=== PATIENT | female | born 1995 | race American Indian/Alaskan Native ===

== ENCOUNTER 2021-03-28 12:24 | Emergency (ER) | payer MEDICAID ==
[2021-03-28] MEDS ORDERED: BUTALB/ACETAMINOPHEN/CAFFEINE TAB PO ONE (13:31)
[2021-03-28] MEDS ORDERED: DEXAMETHASONE 4 MG TAB PO ONE (13:31)
[2021-03-28 13:32] VITALS: BP 117/82
--- NOTE | 2021-03-28 13:36 | Emergency Department Report ---
ED Head Trauma HPI - General Chief complaint: Head Injury Stated complaint: HEAD INJURY Time Seen by Provider: 03/28/21 13:15 Source: patient Mode of arrival: Ambulatory Limitations: No Limitations - History of Present Illness Initial comments: 25-year-old female with past medical history of asthma presents to the ER today complaining of head injury. Patient states that she excellently ran into a glass door playing with her dog 4 days ago. She denies any LOC. She states that she struck the left frontal aspect of her head and she did have some mild swelling which has since improved but she has continued to have an intermittent bifrontal headache since the injury. She states that at the time she was also on her menstrual cycle had to be taken Midol which did help mildly with the headache but she states that she came in to get checked out because she was afraid that she may have had a concussion since the headache is not completely going away. She states that the headache is sometimes worse with light and sometimes noise. She has no prior history of headaches. She denies any neck pain, nausea, vomiting, vision changes, focal weakness, numbness, tingling or any additional symptoms. She is not on any blood thinners. She denies any alcohol abuse. Complaint: head injury -: days(s) (4) - Related Data Previous Rx's Medication Instructions Recorded Last Taken Type Butalb/Acetamin/Caff 50-325-40 1 tab PO Q6HR PRN #12 tab 03/28/21 Unknown Rx [Fioricet 50-325-40] ED Review of Systems ROS: Stated complaint: HEAD INJURY Other details as noted in HPI Comment: All other systems reviewed and negative Neurological: headache, other (Head injury x4 days ago) ED Past Medical Hx - Past Medical History Previous Medical History?: Yes Hx Asthma: Yes - Surgical History Past Surgical History?: Yes Additional Surgical History: foot sx, oral sx - Social History Smoking Status: Unknown if ever smoked Substance Use Type: None - Medications Home Medications: Home Medications Medication Instructions Recorded Confirmed Last Taken Type Butalb/Acetamin/Caff 50-325-40 1 tab PO Q6HR PRN #12 tab 03/28/21 Unknown Rx [Fioricet 50-325-40] ED Physical Exam - General Limitations: No Limitations General appearance: alert, in no apparent distress - Head Head exam: Present: atraumatic, normocephalic, normal inspection - Eye Eye exam: Present: normal appearance, PERRL, EOMI. Absent: periorbital swelling, periorbital tenderness Pupils: Present: normal accommodation - ENT ENT exam: Present: normal exam, mucous membranes moist, TM's normal bilaterally - Neck Neck exam: Present: normal inspection, full ROM. Absent: tenderness, meningismus - Respiratory Respiratory exam: Present: normal lung sounds bilaterally. Absent: respiratory distress, wheezes, rales, rhonchi - Cardiovascular Cardiovascular Exam: Present: regular rate, normal rhythm, normal heart sounds - Neurological Exam Neurological exam: Present: alert, oriented X3, CN II-XII intact, normal gait - Psychiatric Psychiatric exam: Present: normal affect, normal mood - Skin Skin exam: Present: intact ED Course Vital Signs 03/28/21 12:49 Temperature 98.6 F Pulse Rate 56 L Respiratory 15 Rate Blood Pressure 117/82 O2 Sat by Pulse 100 Oximetry - Medical Decision Making Patient is awake alert oriented x3. She is well-appearing, nontoxic not in any acute distress. She is neurologically intact with a normal gait. Physical exam showed no obvious face or head trauma. Patient injury occurred 4 days ago and there was no LOC. Reassured patient that the fact that she has been able to go to sleep and wake up every day is a good sign. I do not see an indication at this time to do a head CT or any additional emergent testing. Patient will be prescribed something specifically for headaches and she also be given referral to local neurology group just in case he continues but she understands that if he is worse in any way to return to the ER. Patient expressed understanding of all instructions and agree with plan. Patient stable at time of discharge. Critical care attestation.: If time is entered above; I have spent that time in minutes in the direct care of this critically ill patient, excluding procedure time. ED Disposition Clinical Impression: Head injury, Post-traumatic headache, not intractable Disposition: 01 HOME / SELF CARE / HOMELESS Is pt being admited?: No Does the pt Need Aspirin: No Condition: Stable Instructions: Head Injury, Adult Additional Instructions: I recommend that you take the Fioricet as prescribed to help with any headache. Follow-up with the neurologist as listed on your discharge instructions and given to you in the ER. Return to the ER if your symptoms changes or worsens in any way. Prescriptions: Butalb/Acetamin/Caff 50-325-40 [Fioricet 50-325-40] 1 tab PO Q6HR PRN #12 tab PRN Reason: Headache Referrals: EUGENE POND MD [Staff Physician] - 3-5 Days [facility] [Provider Group] - 3-5 Days Forms: Work/School Release Form(ED) Time of Disposition: 13:34
== END 2021-03-28 14:13 | disposition home or self-care (01) ==
LOC: ED 12:24
DX: S09.90XA Unspecified injury of head, initial encounter (principal); G44.309 Post-traumatic headache, unspecified, not intractable; J45.909 Unspecified asthma, uncomplicated; T14.90XA Injury, unspecified, initial encounter; W22.8XXA Striking against or struck by other objects, initial encounter; Y93.89 Activity, other specified; Y92.89 Other specified places as the place of occurrence of the external cause; Y99.8 Other external cause status
CPT/HCPCS: 99281